=== PATIENT | female | born 1945 | race Caucasian/White ===

== ENCOUNTER 2019-09-21 12:10 | Outpatient (CLI) | payer MEDICARE ==
[~2019-09-21 12:10] MED LIST: CARB1TAB23 PO; CITA20TA2 PO; EXEM25TA5 PO; HYDR-4353 PO; HYDR25TA4 PO; LORA1TAB PO; OMEP20TA5 PO; PRAV40TA3 PO
== END 2019-09-21 23:59 | disposition home or self-care (01) ==
LOC: CARD DIAG 12:10
PROVIDERS: ATTEND Family Medicine
DX: I08.0 Rheumatic disorders of both mitral and aortic valves (principal); C50.919 Malignant neoplasm of unspecified site of unspecified female breast; E78.49 Other hyperlipidemia; I10 Essential (primary) hypertension
CPT/HCPCS: 93306

== ENCOUNTER 2020-01-10 11:24 | Outpatient (CLI) | payer MEDICARE | END 2020-01-10 23:59 | disposition home or self-care (01) | LOC: CARD DIAG 11:24 | PROVIDERS: ATTEND Internal Medicine Hematology | DX: I34.0 Nonrheumatic mitral (valve) insufficiency (principal); I74.9 Embolism and thrombosis of unspecified artery; C50.912 Malignant neoplasm of unspecified site of left female breast | CPT/HCPCS: 93306 ==